=== PATIENT | female | born 1965 | race Caucasian/White ===

== ENCOUNTER 2024-04-30 22:54 | Emergency (ER) | payer OTHER, SELFPAY ==
[2024-04-30 22:58] VITALS: BP 190/110
[2024-04-30 23:12] VITALS: BP 208/114; PULSE 60; RESP 20; O2SAT 100; BMI 25.2
[2024-04-30 23:16] VITALS: BP 180/94
--- NOTE | 2024-04-30 23:46 | ED_ITS ---
HPI - General Adult General Chief complaint: General Medical Stated complaint: htn Time Seen by Provider: 04/30/24 23:13 Source: patient Mode of arrival: ambulatory Limitations: no limitations History of Present Illness ED Provider: Dr. Renetta Rodriguez HPI narrative: Patient comes to the emergency room complaining of high blood pressure. Patient states that she recently went to see her PCP, it was noted that patient's blood pressure was elevated. Patient states that she has never had any health issues in the past. Denies chest pain or shortness of breath. Patient states that she has of tingling in her left arm. Patient states that her PCP started her on Lexapro hoping that it would help with the anxiety. However, patient was also started on amlodipine 5 mg hoping that it would help with the blood pressure while the Lexapro starts working. Patient's blood pressure has been in the 200s systolic. Patient denies headache. Related Data Previous Rx's ?Medication ?Instructions ?Recorded amlodipine 10 mg tablet 10 mg PO DAILY #60 tabs 05/01/24 Allergies Allergy/AdvReac Type Severity Reaction Status Date / Time amoxicillin [AMOXICILLIN] Allergy Unknown YEAST Verified 04/30/24 23:15 INFECIONS Review of Systems 2 Review of Systems: Constitutional : No Weight loss, No Fever, No Chills, No Night Sweats, No Fatigue, No Malaise ENT/Mouth : No Hearing loss, No Ear Pain, No Nasal Congestion, No Sinus Pain, No Hoarseness, No sore throat, No Rhinorrhea, No Swallowing Difficulty Eyes: No Eye Pain, No Swelling, No Redness, No Foreign Body, No Discharge, No Vision Changes Cardiovascular : No Chest Pain, No SOB, No Dyspnea on Exertion, No Orthopnea, No Edema, No Palpitations complaining of high blood pressure, complaining of mild tingling on the left arm but not present at this time Respiratory : No Cough, No Sputum, No Wheezing, No Smoke Exposure, No Dyspnea Gastrointestinal : Chronic IBS for months, No Nausea, No Vomiting, No Diarrhea, No Constipation, No abdominal Pain, No Hematochezia, No Melena Genitourinary : no irregular bleeding, No Dysuria, No Urinary Frequency, No Hematuria, No Urinary Incontinence, No Urgency, No Flank Pain, No Urinary Flow Changes, No Hesitancy Musculoskeletal : No joint pain, No Myalgias, No Joint Swelling Skin : No Skin Lesions, No rash Neuro : No Weakness, No Numbness, No Paresthesias, No Loss of Consciousness, No Dizziness, No Headache Psych : No Anxiety/Panic, No Depression, No SI/HI/AH/VH, No Social Issues, Heme/Lymph: No Bruising, No Bleeding,No Lymphadenopathy Endocrine : No Polyuria, No Polydipsia, No Temperature Intolerance COUNT INCLUDES THE [facility] Past Medical History Medical History (Updated 05/01/24 @ 01:05 by Renetta Rodriguez MD) Hypertension Social History Social History Smoked in Last 30 Days: No Use of substances other than those prescribed or required for medical reasons: No Advance Directives: No Advance Directives Information Provided: Yes Do you have a plan to hurt others: No Plan Patient : No Physical Exam ED Vital Signs: Vital Signs - 24 hr 04/30/24 23:12 04/30/24 23:16 05/01/24 00:23 Pulse Rate 60 68 Respiratory Rate 20 13 Blood Pressure 208/114 H 180/94 H 147/84 H Pulse Oximetry 100 Oxygen Delivery Method Room Air BMI result Body Mass Index 25.2 Const Other: Appearance: Alert. Oriented X3. No acute distress. Eyes: Pupils equal, round and reactive to light. ENT: Pharynx normal. Neck: Normal inspection. Neck supple. No lymph nodes noted. No crepitus CVS: Normal heart rate and rhythm. Pulses normal. Normal S1 and S2 Respiratory: No respiratory distress. Breath sounds normal. No Wheezing. No rales Abdomen: Soft and nontender. No rigidity. No distention. Skin: Skin warm and dry. Normal skin color. Normal skin turgor. Extremities: No lower extremity edema. No Lacerations. No Rash Neuro: Oriented X 3. No motor deficit. No sensory deficit. Moving all extremities. No slurred speech. CN 2 through 12 grossly intact Psych: calm, cooperative, normal affect Course Course Course Narrative: On arrival, patient's blood pressure 208/114. Repeated blood pressure 180/94. I discussed with the patient that we will obtain basic labs, EKG. We will wait a few minutes to see if the blood pressure decreases by itself. Otherwise, we will give p.o. medications Medical Decision Making Medical Decision Making MDM Narrative: My interpretation of EKG: Normal sinus rhythm, heart rate 62, no ST segment depression or elevation, no T-wave inversion, QTC 414. Of note, patient's EKG is not crossing over to the system My interpretation of labs: Normal hematology and chemistry, normal troponin Without any medications, blood pressure decreased to the 140s systolic, patient asymptomatic. I discussed with the patient that we have better blood control pressure, to increase her amlodipine to 10 mg every day. Patient agrees with plan. Differential Diagnosis Differential Diagnoses: The differential diagnosis associated with the presentation includes (Hypertension, anxiety) Lab Data MDM Lab Attestation statement: I reviewed the patient's lab results. 05/01/24 00:19 05/01/24 00:19 Labs: Lab Results 05/01/24 Range/Units 00:19 WBC 5.7 (4.8-10.8) X10*3/uL RBC 4.43 (4.20-5.50) X10*6/uL Hgb 13.8 (12.0-16.0) g/dl Hct 39.6 (37.0-47.0) % MCV 89.4 (80.0-98.0) fL MCH 31.2 (27.0-33.0) pg MCHC 34.8 (31.0-35.0) g/dl RDW 11.9 (11.0-16.0) % Plt Count 205 (160-400) X10*3/uL MPV 10.6 (9.4-12.3) fL Immature Gran % (Auto) 0.4 (0.0-0.4) % Neut % (Auto) 66.0 (45-73) % Lymph % (Auto) 23.0 (20-40) % Cassia % (Auto) 7.8 (2-11) % Eos % (Auto) 2.3 (0-4) % Baso % (Auto) 0.5 (0-2) % Lymph # (Auto) 1.3 (1.2-4.9) X10*3/uL Cassia # (Auto) 0.4 (0.1-1.2) X10*3/uL Eos # (Auto) 0.1 (0.0-0.4) X10*3/uL Baso # (Auto) 0.0 (0.0-0.2) X10*3/uL Abs Immat Gran (auto) 0.02 (0.00-0.03) X10*3/uL Absolute Neuts (auto) 3.7 (2.0-8.3) x10*3/uL Absolute Nucleated RBC 0.000 (0.0-0.012) X10*3/uL Nucleated RBC % (auto) 0.0 (0.0-0.2) /100WBC Sodium 137 (135-145) mmol/L Potassium 3.8 (3.3-5.1) mmol/L Chloride 106 (96-108) mmol/L Carbon Dioxide 22 (22-29) mmol/L Anion Gap 13 (12-20) BUN 15 (9-16) mg/dL Creatinine 0.70 (0.5-1.4) mg/dL Estim Creat Clear Calc 83.2 Estimated GFR > 60 Random Glucose 95 (60-115) mg/dL Calcium 9.6 (8.4-10.2) mg/dL Total Bilirubin 1.2 H (0.0-1.0) mg/dL AST 27 (5-31) U/L ALT 34 H (0-31) U/L Alkaline Phosphatase 88 (39-117) U/L Troponin I High Sens < 2.7 (<3.5-17.0) ng/L Total Protein 7.6 (6.5-8.0) g/dL Albumin 4.5 (3.5-5.0) g/dL Lipase 39 (8-78) U/L Independent Interpretation I performed an independent interpretation of an: EKG Discharge Plan Discharge Clinical Impression: Hypertension Patient Disposition: Home, Self-Care Instructions: Hypertension (ED) Additional Instructions: Please follow-up with your primary care physician tomorrow. If you have any worsening or new symptoms, please return to the emergency room or call 911 Prescriptions: New amlodipine 10 mg tablet 10 mg PO DAILY Qty: 60 0RF Print Language: Yi
--- OUTSIDE RECORDS SUMMARY | 2024-05-01 00:08 | XMS_ITS | Continuity of Care Document ---
Author Organization [facility] Ed lt Address [address] [place] [address]- Care Team Providers Care Hospice Music Therapist Name Role Phone Yolanda URBANO, Ella Primary Care Physician Encounter [facility] Date(s): 03/01/24 - 03/31/24 [facility] Adult [address] [place] [address]- Encounter Type: Triage Allergies, Adverse Reactions, Alerts Substance Criticality Severity Reaction Reaction Severity Status amoxicillin becky vaginitis Active Augmentin YEAST INFECTION Acti ve Immunizations Given and Recorded Vaccine Date Status Refusal Reason tetanus-diphtheria toxoids (Td) 04/15/23 Given zoster vaccine, inactivated 01/17/23 Recorded zoster vaccine, inactivated 11/01/22 Recorded SARS-CoV-2 (COVID-19) mRNA-1273 vaccine 03/14/21 R ecorded SARS-CoV-2 (COVID-19) mRNA-1273 vaccine 04/26/20 R ecorded SARS-CoV-2 (COVID-19) mRNA-1273 vaccine 03/29/20 R ecorded influenza virus vaccine, inactivated 02/04/20 Javier rded influenza virus vaccine, inactivated 1 03/28/17 Gi krystyna influenza virus vaccine, inactivated 01/05/16 Give n influenza virus vaccine, inactivated 2 01/22/13 Gi krystyna Influenza Virus Vaccine (oldterm) 12/30/19 Recorde d Influenza Virus Vaccine (oldterm) 03/27/18 Given Influenza Virus Vaccine (oldterm) 3 02/28/06 Given tetanus/diphtheria/pertussis, acel(Tdap) 01/22/13 Given Tetanus Toxoid Vaccine (oldterm) 06/26/07 Given 1Result Comment: [03/28/2017] [facility] [id number] 2Admin Note: FLUARIX 3Admin Note: GIVEN IN [facility]INIC [facility] Problem List Condition Confirmation Course Effective Dates Status H ealth Status Informant Cyclical mastalgia Confirmed Active Hyperlipidemia ASCVD risk 1.3% as of 03/12/20 Confirmed Active Iron deficiency anemia Confirmed Active Malignant melanoma of trunk Confirmed Active Heavy menses Confirmed Active Social History Social History Type Response Smoking Status Never smoker entered on: 03/21/17 Sex Sex Representation Female (finding) Patient Care team information Care Team Personnel Name: Ella Guerrero MD Position: S Physician - Primary Care Member Role: PCP Address: [address] [place] [address] Outpatient [place], [place] [address] Telecom: Care Team Related Persons Name: RACHNA CLEMENTE Name: JENNY DANGELO SISTER IN LAW Name: FAZAL DANGELO Insurance Providers Guarantor name: MARLENE CHYNA Health Plan Information #: 1 Payer: [facility] Member Number: NA Policy Number: NA Group Number: NA
--- OUTSIDE RECORDS SUMMARY | 2024-05-01 00:08 | XMS_ITS | Clinical Summary ---
Author Organization [facility] Address [address] [place] [address] Care Team Providers Care Hand Kiss Setter Name Role Phone Unavailable Primary Care Provider Unavailabl e Immunizations Name Administration Dates Next Due Covid-19 mRNA Primary Series Vaccine - Moderna 0.5 mL Full Dose 04/26/2020,03/29/2020 Social History Tobacco Use Types Packs/Day Years Used Date Smoking Tobacco: Never Assessed Sex and Gender Information Value Date Recorded Sex Assigned at Not on file Gender Identity Not on file Sexual Orientation Not on file Plan of Treatment Health Maintenance Due Date Last Done Comments Hepatitis C Virus Screening 1966 HIV Screening 08/03/1979 DTaP/Tdap/Td Vaccines (1 - Tdap) 1985 Hepatitis B Vaccines (1 of 3 - 19+ 3-dose series) 1985 Pap Smear (Ages 21-65) 08/03/1987 Mammogram 2006 Colonoscopy 08/03/2011 Pneumococcal Vaccines 50+ (1 of 1 - PCV) 2016 Zoster (Shingles) Vaccine (1 of 2) 2016 Influenza Vaccine 10/16/2023 02/04/2020 COVID-19 Vaccine (3 - 2023-2 5 season) 2023 04/26/2020, 03/29/2020 Pneumococcal Vaccine: Pediatric (0-5 Years) and At-Risk Patients (6 to 49 Years) Aged Out No longer eligible b ased on patient's age to complete this topic
[2024-05-01 00:23] VITALS: BP 147/84; PULSE 68; RESP 13
[2024-05-01 00:24] LABS: MANUAL DIFF FLAG NO
[2024-05-01 00:25] LABS: Basophils Percent Auto 0.5 % (0-2); Eosinophils Absolute Auto 0.1 X10*3/uL (0.0-0.4); Eosinophils Percent Auto 2.3 % (0-4); Hematocrit 39.6 % (37.0-47.0); Hemoglobin 13.8 g/dl (12.0-16.0); Imm Gran Abs Auto 0.02 X10*3/uL (0.00-0.03); Imm Gran Pct Auto 0.4 % (0.0-0.4); Lymphocytes Absolute Auto 1.3 X10*3/uL (1.2-4.9); Mean Corpuscular HGB Conc 34.8 g/dl (31.0-35.0); Mean Corpuscular Hemoglobin 31.2 pg (27.0-33.0); Mean Corpuscular Volume 89.4 fL (80.0-98.0); Mean Platelet Volume 10.6 fL (9.4-12.3); Monocytes Absolute Auto 0.4 X10*3/uL (0.1-1.2); Monocytes Percent Auto 7.8 % (2-11); Neutrophils Absolute Auto 3.7 x10*3/uL (2.0-8.3); Platelet Count 205 X10*3/uL (160-400); Red Blood Count 4.43 X10*6/uL (4.20-5.50); Red Cell Distribution Width 11.9 % (11.0-16.0); White Blood Count 5.7 X10*3/uL (4.8-10.8)
[2024-05-01 00:39] LABS: Alanine Aminotransferase 34 U/L (0-31); Albumin Level 4.5 g/dL (3.5-5.0); Alkaline Phosphatase 88 U/L (39-117); Anion Gap 13 (12-20); Aspartate Amino Transferase 27 U/L (5-31); Bilirubin Total 1.2 mg/dL (0.0-1.0); Blood Urea Nitrogen 15 mg/dL (9-16); Calcium 9.6 mg/dL (8.4-10.2); Carbon Dioxide 22 mmol/L (22-29); Chloride 106 mmol/L (96-108); Creatinine Clr Calc Pharmacy 83.2; Estimated Glomerular Filt Rate > 60; Glucose Random 95 mg/dL (60-115); Lipase 39 U/L (8-78); Potassium 3.8 mmol/L (3.3-5.1); Sodium 137 mmol/L (135-145); Total Protein 7.6 g/dL (6.5-8.0)
[2024-05-01 00:43] LABS: Troponin-I High Sensitivity < 2.7 ng/L (<3.5-17.0)
[2024-05-01 01:40] VITALS: BP 151/94; PULSE 70; RESP 17; TEMP 36.6; O2SAT 98
== END 2024-05-01 01:45 | disposition home or self-care (01) ==
PROVIDERS: Emergency Provider Emergency Medicine; PCP Hospitalist
DX: I10 Essential (primary) hypertension (principal); F41.9 Anxiety disorder, unspecified; Z79.899 Other long term (current) drug therapy
CPT/HCPCS: 36415; 80053; 83690; 84484; 85025; 99283; 99284

== ENCOUNTER 2024-12-17 15:40 | Outpatient (AMB) | payer OTHER, SELFPAY ==
--- OUTSIDE RECORDS SUMMARY | 2024-12-17 15:43 | XMS_ITS | Clinical Summary ---
Author Organization [facility] Address [address] [place] [address] Care Team Providers Care Miniature Model Maker Name Role Phone Unavailable Primary Care Provider Unavailabl e Immunizations Immunization Administration Dates Next Due Covid-19 mRNA Primary Series Vaccine - Moderna 0.5 mL Full Dose 04/26/2020,03/29/2020 Social History Tobacco Use Types Packs/Day Years Used Date Smoking Tobacco: Never Assessed Comments Unknown Sex and Gender Information Value Date Recorded Sex Assigned at Not on file Legal Sex Female 1:58 PM EST Gender Identity Not on file Sexual Orientation [...] Vaccine (1 of 2) 2016 Influenza Vaccine 10/15/2024 02/04/2020 COVID-19 Vaccine (3 - 2024- season) 11/15/202412/2020, 03/29/[address] [facility]
--- NOTE | 2024-12-17 15:55 | HO.NEPHOV ---
Vital Signs 12/17/24 16:00 Height 5 ft 4 in Weight 149 lb 2 oz BMI 25.6 BP 128/70 Blood Pressure Location Rt brachial Position Sitting Pulse 75 Pulse Source Pulse Oximeter Pulse Oximetry (%) 99 Oxygen Delivery Method Room Air Intake Visit Reasons: Per Dr Knight/ Htn & Kidney evaluation Lining Mechanic Required: No Accompanied by: Self / Same As Patient Allergies amoxicillin (AMOXICILLIN) Allergy (Unknown, Verified 04/30/24 23:15) YEAST INFECIONS clavulanic acid (From Augmentin) Adverse Reaction (Verified 12/17/24 16:00) Unknown HPI Comments Details: I had the privilege of seeing Ilsa in consultation for hypertension. 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 She is going through a lot of personal life stresssors which is causing anxiety in her with rise in blood pressure. She was initiated on Amlodipine by her PCP which was controlling her blood pressure but was causing edema and had to be discontinued. She is currently on losartan which is controlling her blood pressure. She has no vascular issues , CAD, CVA, CHF, PAD or renal dysfunction. She has not had any thyroid function checked. When she becomes anxious, her BP has been on the higher side. She had one high blood sugar reading but she is not a diabetic as her HbA1c is 5.6. She is not a smoker. She had dyslipidemia and has been initiated on statins.She was told by her family that she snores while sleeping. She has no H/O hypokalemia, hypercalcemia, palpitations, SOB, PND, orthopnea or pedal edema. She feels she is taking too much medications and has not had any sleep study. [facility] Medical History (Updated 12/17/24 @ 23:07 by Harish Knight MD) Snoring Overweight Malignant melanoma of trunk Iron deficiency anemia HLD (hyperlipidemia) Heavy menses Elevated LFTs Cyclical mastalgia Anxiety Hypertension Surgical History (Updated 12/17/24 @ 15:58 by Shreya Granger MA) H/O adenoidectomy S/P ACL repair H/O melanoma excision H/O colonoscopy Family History (Updated 12/17/24 @ 15:57 by Shreya Granger MA) Father Hypertension Kidney disease High cholesterol Lymphoma Mother Hypertension High cholesterol A-fib Sister Cancer Social History (Updated 12/17/24 @ 15:56 by Shreya Granger MA) Alcohol intake: current Patient Tobacco Use Status: Never used Tobacco Review of Systems Const All systems reviewed & are unremarkable except as noted in HPI and below Physical Exam Vital Signs: Last Vital Signs Pulse 75 12/17/24 16:00 BP 128/70 12/17/24 16:00 Pulse Ox 99 12/17/24 16:00 Oxygen Delivery Method Room Air 12/17/24 16:00 BMI result Body Mass Index 25.6 Const General: comfortable and no acute distress Orientation/consciousness: patient oriented x3 HEENT Head: Yes normocephalic Mouth: Normal oral and palatal mucosa present Eyes EOM: EOMs intact bilaterally Neck Neck: Yes supple Resp Auscultation: clear to auscultation bilaterally Cardio Jugular venous distension: no JVD Rate: regular rate Heart sounds: Murmur heart sound present GI Palpation (GI): Soft to palpation Auscultation: normal bowel sounds General: Yes no CVA tenderness Back/Spine/Pelvis Back: no CVA tenderness Skin General skin exam: no rashes or lesions noted Neuro General: patient oriented x3 and moves all extremities Extrem General: Yes no pedal edema Results Reviewed Nephrology Results: Hgb, (12.0-16.0) 13.8 g/dl 05/01/24 WBC, (4.8-10.8) 5.7 X10*3/uL 05/01/24 Plt Count, (160-400) 205 X10*3/uL 05/01/24 Sodium, (135-145) 137 mmol/L 05/01/24 Potassium, (3.3-5.1) 3.8 mmol/L 05/01/24 Chloride, (96-108) 106 mmol/L 05/01/24 Carbon Dioxide, (22-29) 22 mmol/L 05/01/24 BUN, (9-16) 15 mg/dL 05/01/24 Creatinine, (0.5-1.4) 0.70 mg/dL 05/01/24 Calcium, (8.4-10.2) 9.6 mg/dL 05/01/24 Assessment & Plan Assessment & Plan (1) Hypertension: Code(s): I10 - Essential (primary) hypertension Category: Medical Qualifiers: Hypertension type: primary hypertension Qualified Code(s): I10 - Essential (primary) hypertension Plan Ilsa has been diagnosed with hypertension and has been on medications for some time. Amlodipine has caused edema and was discontinued. She is currently on losartan and is not known to have proteinuria, LVH or retinopathy. She may need a sleep study. I have ordered thyroid function and a 24 hour BP monitor. I am considering switching her from losartan to a beta cheko given her anxiety issues, stresses and BP. She should keep a low sodium diet and maintain good hydration. She should minimize NSAID's and maintain lifestyle modifications. Further management is pending evolving data. Answered all questions and F/U was given Orders: Orders AMB 24 HR B/P Monitor PLACEMENT Today I10 - Essential (primary) hypertension TSH reflex Free T4 Today I10 - Essential (primary) hypertension Coding Level of Care Code New Pt Level 4 (63435) Diagnoses Primary hypertension I10 Hypertension type: primary hypertension
[2024-12-17 16:00] VITALS: BP 128/70; PULSE 75; O2SAT 99; BMI 25.6
== END 2024-12-17 16:38 | disposition home or self-care (01) ==
LOC: HO.HKA 15:41
PROVIDERS: PCP Hospitalist; Visit Provider Internal Medicine Nephrology
DX: I10 Essential (primary) hypertension (principal)
CPT/HCPCS: 99204